=== PATIENT | female | born 1980 | race Caucasian/White ===

== ENCOUNTER 2016-10-13 12:18 | Emergency (ER) | payer BC ==
[2016-10-13] MEDS ORDERED: Ondansetron 8 MG Tab.DIS PO ONE (12:39)
[2016-10-13] MEDS ORDERED: Alum Hydroxide/Mag Hydroxide 15 ML, Lidocaine 2% 15 ML PO ONE ×2 (12:40)
--- NOTE | 2016-10-13 13:26 | EDM.PDOC ---
ED HPI GENERAL MEDICAL PROBLEM - General Stated Complaint: upper rib pain Time Seen by Provider: 10/13/16 12:18 Source of Information: Reports: Patient, Significant Other History Limitations: Reports: No Limitations - History of Present Illness INITIAL COMMENTS - FREE TEXT/NARRATIVE: 35 y.o.w.f came to the ed due to acute onset of epigastric pain. No n/v/d oe dizziness or any other acute medical issues. Occ. pain uis radiating to her LUQ of her abdomen. Now, pain is located at her mid upper abdomen. Onset: Today Onset Date: 10/13/16 Onset Time: 07:00 Duration: Hour(s):, Intermittent Location: Reports: Abdomen Quality: Reports: Burning, Dull Severity: Moderate Improves with: Reports: Rest Worsens with: Reports: Other (stress) Associated Symptoms: Reports: No Other Symptoms Abdomen Pain Score (Numeric/FACES): 8 - Related Data Allergies Allergy/AdvReac Type Severity Reaction Status Date / Time tuberculin, purified protein Allergy Hives Verified 10/06/14 23:13 deriva [tuberculin,purif.prot.deriv.] Home Meds: Home Meds Escitalopram [Lexapro] 40 mg PO BEDTIME 10/13/16 [History] Omeprazole [Omeprazole] 20 mg PO DAILY 10/13/16 [History] Ondansetron [Zofran ODT] 8 mg PO Q6H PRN #20 tab.dis 10/13/16 [Rx] buPROPion HCl [buPROPion HCl ER] 200 mg PO DAILY 10/13/16 [History] Social & Family History - Tobacco Use Smoking Status *Q: Never Smoker - Recreational Drug Use Recreational Drug Use: No ED ROS GENERAL - Review of Systems Review Of Systems: See Below Constitutional: Reports: No Symptoms HEENT: Reports: No Symptoms Respiratory: Reports: No Symptoms Cardiovascular: Reports: No Symptoms Endocrine: Reports: No Symptoms GI/Abdominal: Reports: Abdominal Pain : Reports: No Symptoms Musculoskeletal: Reports: No Symptoms Skin: Reports: No Symptoms Neurological: Reports: No Symptoms Psychiatric: Reports: No Symptoms Hematologic/Lymphatic: Reports: No Symptoms Immunologic: Reports: No Symptoms ED EXAM, GI/ABD - Physical Exam Exam: See Below Exam Limited By: No Limitations General Appearance: Alert, WD/WN, Mild Distress Eyes: Bilateral: Normal Appearance Ears: Normal External Exam Nose: Normal Inspection Throat/Mouth: Normal Inspection, Normal Lips Head: Atraumatic, Normocephalic Neck: Normal Inspection Respiratory/Chest: No Respiratory Distress, Lungs Clear Cardiovascular: Normal Peripheral Pulses, Regular Rate, Rhythm, No Edema GI/Abdominal Exam: Tender (epigastric area) (Female) Exam: Deferred Rectal (Female) Exam: Deferred Back Exam: Normal Inspection, Full Range of Motion Extremities: Normal Inspection, Normal Range of Motion, Non-Tender, No Pedal Edema Neurological: Alert, Oriented, CN II-XII Intact, Normal Cognition, Normal Gait Psychiatric: Normal Affect, Normal Mood Skin Exam: Warm, Dry, Intact, Normal Color, No Rash Lymphatic: No Adenopathy Course - Vital Signs Text/Narrative:: 35 y.o.w.f came to the ed due to acute onset of epigastric pain. No n/v/d oe dizziness or any other acute medical issues. Occ. pain uis radiating to her LUQ of her abdomen. Now, pain is located at her mid upper abdomen. PE: Epigastric tenderness Impression: Gastritis Tx: Zofra, GI cocktail Reexam: 90% better Plan: D/C with instructions Last Recorded V/S: Last Vital Signs Temp Pulse 73 10/13/16 13:31 Resp 18 10/13/16 13:31 BP 112/58 L 10/13/16 13:31 Pulse Ox 100 10/13/16 13:31 - Orders/Labs/Meds Meds: Medications Discontinued Medications Generic Name Dose Route Start Last Admin Trade Name Freq PRN Reason Stop Dose Admin Al Hydroxide/Mg Hydroxide 15 0 ml 10/13/16 12:40 10/13/16 12:51 ml/ Lidocaine HCl 15 ml PO 10/13/16 12:41 30 ml ONETIME ONE Administration Ondansetron HCl 8 mg 10/13/16 12:39 10/13/16 12:51 Zofran Odt PO 10/13/16 12:40 8 mg ONETIME ONE Administration Departure - Departure Time of Disposition: 13:23 Disposition: Home, Self-Care 01 Condition: Good Clinical Impression: Gastritis Qualifiers: Gastritis type: unspecified gastritis Chronicity: acute Gastritis bleeding: without bleeding Qualified Code(s): K29.00 - Acute gastritis without bleeding - Discharge Information Prescriptions: Ondansetron [Zofran ODT] 8 mg PO Q6H PRN #20 tab.dis PRN Reason: Nausea Instructions: Gastritis, Adult Referrals: Rudi Rayo MD [Primary Care Provider] - Forms: ED Department Discharge Additional Instructions: Ptease cont your current meds, please f/u please take zofran for nausea, please come back if the symptoms get worse acutely.
[2016-10-13 13:32] VITALS: BP 112/58
== END 2016-10-13 13:34 | disposition home or self-care (01) ==
LOC: FB.ED 12:18
DX: K29.00 Acute gastritis without bleeding (principal); Z88.8 Allergy status to other drugs, medicaments and biological substances; Z79.899 Other long term (current) drug therapy
CPT/HCPCS: 99283; A9270

== ENCOUNTER 2016-10-24 03:58 | Emergency (ER) | payer BC ==
[2016-10-24] MEDS ORDERED: traMADol 50 MG Tab PO ONE ×2 (04:27→04:39)
[2016-10-24 04:30] VITALS: BP 123/63
--- NOTE | 2016-10-24 04:35 | EDM.PDOC ---
ED HPI GENERAL MEDICAL PROBLEM - General Chief Complaint: Gastrointestinal Problem Stated Complaint: UPPER ABD PAIN Time Seen by Provider: 10/24/16 04:15 Source of Information: Reports: Patient, Family, Old Records History Limitations: Reports: No Limitations - History of Present Illness INITIAL COMMENTS - FREE TEXT/NARRATIVE: Chelle returns to [facility] ED with a relapse of upper abdominal pains, this time over the past 3 hours. Pain is sharp at times, remains anterior and does not radiate to the back. There is no nausea or vomiting, no diarrhea. Of interest is a PMH of bariatric surgery (gastric sleeve) in 2015 in [place], [place] for which she has lost 100#. She was seen her on October 13 for similar sxs, and did see the GI Bariatric provider last week for assessment, RUQ US pending. She has tried Tylenol for sxs relief. epigastric Pain Score (Numeric/FACES): 8 - Related Data Allergies Allergy/AdvReac Type Severity Reaction Status Date / Time tuberculin, purified protein Allergy Hives Verified 10/24/16 04:08 deriva [tuberculin,purif.prot.deriv.] Home Meds: Home Meds Escitalopram [Lexapro] 40 mg PO BEDTIME 10/13/16 [History] Omeprazole [Omeprazole] 20 mg PO DAILY 10/13/16 [History] buPROPion HCl [buPROPion HCl ER] 200 mg PO DAILY 10/13/16 [History] Past Medical History CLINICAL THERAPIST History: Reports: , Other (See Below) Other OB/BYN History: Psychiatric History: Reports: Depression - Past Surgical History GI Surgical History: Reports: Bariatric Procedure, Other (See Below) Other GI Surgeries/Procedures: gastric sleeve in jan 2016 Female Surgical History: Reports: Section Social & Family History - Family History Family Medical History: Noncontributory - Tobacco Use Smoking Status *Q: Never Smoker - Caffeine Use Caffeine Use: Reports: None - Recreational Drug Use Recreational Drug Use: No ED ROS GENERAL - Review of Systems Review Of Systems: ROS reveals no pertinent complaints other than HPI. ED EXAM, GI/ABD - Physical Exam Exam: See Below Exam Limited By: No Limitations General Appearance: Alert, WD/WN, No Apparent Distress Eyes: Bilateral: Normal Appearance, EOMI Ears: Normal External Exam Nose: Normal Inspection Throat/Mouth: Normal Inspection, Normal Oropharynx Head: Normocephalic Neck: Normal Inspection, Supple Respiratory/Chest: Lungs Clear, Normal Breath Sounds Cardiovascular: Regular Rate, Rhythm GI/Abdominal Exam: Normal Bowel Sounds, Soft, No Organomegaly, No Distention, No Mass, Tender (mild in the epigastrium and RUQ, no guarding) Back Exam: Normal Inspection Extremities: Normal Inspection Neurological: Alert, Oriented, CN II-XII Intact, Normal Cognition, Normal Gait, No Motor/Sensory Deficits Psychiatric: Normal Affect, Normal Mood Skin Exam: Warm, Dry Lymphatic: No Adenopathy Course - Vital Signs Text/Narrative:: Chelle remained stable at the [facility] ED. Tramadol 50 mg po was administered. Last Recorded V/S: Last Vital Signs Temp 36.9 C 10/24/16 04:10 Pulse 72 10/24/16 04:10 Resp 17 10/24/16 04:10 BP 123/63 10/24/16 04:10 Pulse Ox 100 10/24/16 04:10 - Orders/Labs/Meds Meds: Medications Discontinued Medications Generic Name Dose Route Start Last Admin Trade Name Kvng PRN Reason Stop Dose Admin Tramadol HCl 50 mg 10/24/16 04:27 Ultram PO 10/24/16 04:28 ONETIME ONE Departure - Departure Time of Disposition: 04:36 Disposition: Home, Self-Care 01 Condition: Fair Clinical Impression: Abdominal pain - Discharge Information Referrals: Rudi Rayo MD [Primary Care Provider] - - Problem List & Annotations (1) Abdominal pain SNOMED Code(s): 86612065 Code(s): R10.9 - UNSPECIFIED ABDOMINAL PAIN Status: Acute Current Visit: Yes Annotation/Comment:: I dispensed some Tramadol 50 mg tabs as directed for pain. Follow up with GI in [place], [place]. - Problem List Review Problem List Initiated/Reviewed/Updated: Yes - Assessment/Plan Plan: Follow up with Bariatric Surgery in [place], [place].
== END 2016-10-24 05:12 | disposition home or self-care (01) ==
LOC: FB.ED 03:58
DX: R10.13 Epigastric pain (principal); R10.11 Right upper quadrant pain; R10.10 Upper abdominal pain, unspecified; F32.9 Major depressive disorder, single episode, unspecified; Z98.84 Bariatric surgery status; Z79.899 Other long term (current) drug therapy; Z88.7 Allergy status to serum and vaccine
CPT/HCPCS: 99283; A9270